=== PATIENT | male | born 1995 | race Caucasian/White ===

== ENCOUNTER 2018-12-20 15:44 | Emergency (ER) | payer BC, OTHER ==
[~2018-12-20] VITALS: Ht 160 cm; Wt 78.0 kg
[~2018-12-20 15:44] MED LIST: DIC20 PO; ONDA4TAB14 PO
[2018-12-20 15:47] VITALS: Ht 160 cm; Wt 78.0 kg
[2018-12-20 16:35] VITALS: BP 136/87; PULSE 90; RESP 18
== END 2018-12-20 16:43 | disposition home or self-care (01) ==
LOC: FTE 15:44
DX: R10.9 Unspecified abdominal pain (principal)
CPT/HCPCS: 99283